=== PATIENT | male | born 1930 | race Caucasian/White ===

== ENCOUNTER 2016-05-25 10:37 | Emergency (ER) | payer OTHER, MEDICARE ==
[2016-05-25 10:49] VITALS: BP 137/85
[2016-05-25] MEDS ORDERED: ACETAMINOPHEN 500 MG TABLET PO ONE (11:12)
[2016-05-25 11:28] LABS: Hematocrit 38.3 % (42.0-52.0); Hemoglobin 12.7 gm/dL (13.5-18.0); Mean Cell Volume 90.1 fl (78-100); Mean Corpuscular Hemoglobin 29.9 pg (27-31); Mean Corpuscular Hgb Conc 33.2 g/dl (32-36); Mean Platelet Volume 9.4 fl (6.0-9.5); Neutrophil # 6.7 K/mm3 (1.3-6.0); Neutrophil % 85.9 % (42-75.0); Platelet Count 116 K/mm3 (150-450); Red Blood Count 4.25 M/mm3 (4.7-6.0); Red Cell Distribution Width 14.2 % (11.5-14.0); White Blood Count 7.8 K/mm3 (4.0-10.5)
[2016-05-25 11:38] LABS: Anion Gap 12.4 mmol/L (6.8-13.8); BUN/Creatinine Ratio 18.6 (9.0-21.6); Calcium * 9.6 mg/dL (7.9-10.9); Carbon Dioxide 28.2 mmol/L (24-32.6); Estimated Creat Clear 47.1; Potassium 3.6 mmol/L (3.4-4.6)
[2016-05-25 11:39] LABS: Prothrombin Time (Patient) 29.6 Seconds (9.4-11.4)
[2016-05-25 11:40] LABS: INR 2.85 INR (0.90-1.10)
--- NOTE | 2016-05-25 11:41 | ERNOTE ---
Upper Extremity HPI - Narrative Date of Service: 05/25/16 - General Extremities Pain Location: wrist: left Time Seen by Provider: 05/25/16 11:05 Source: patient Exam Limitations: no limitations - Immun/Allergies/Home Medications Immunizations: IMMUNIZATION HX Immunizations Up to Date Unknown History of Influenza Vaccine More Information Required Hx Pneumococcal Vaccination More Information Required Allergies/Adverse Reactions: Allergies Allergy/AdvReac Type Severity Reaction Status Date / Time No Known Allergies Allergy Verified 05/25/16 10:49 Home Medications: HOME MEDICATIONS Aspirin 81 mg PO DAILY 09/05/15 [Last Taken Unknown] Furosemide [Lasix] 40 mg PO DAILY 09/05/15 [Last Taken Unknown] Lisinopril [Zestril] 10 mg PO DAILY 09/05/15 [Last Taken Unknown] Simvastatin [Zocor] 20 mg PO HS 09/05/15 [Last Taken Unknown] Travoprost [Travatan Z] 1 drop EACHEYE DAILY 09/05/15 [Last Taken Unknown] Warfarin Sodium [Coumadin] 4 mg PO DAILY 09/05/15 [Last Taken Unknown] metFORMIN HCL [Glucophage] 500 mg PO BIDWM 09/05/15 [Last Taken Unknown] Albuterol Sulfate [Albuterol Sulfate 2.5 MG/0.5ML] 2.5 mg IH Q4HRT #120 vial.neb 09/11/15 [Last Taken Unknown] Fluticasone/Salmeterol [Advair 250-50 Diskus] 1 puff IH BID 30 Days 09/11/15 [ Last Taken Unknown] Tiotropium [place] [Spiriva] 1 cap IH DAILY 30 Days 09/11/15 [Last Taken Unknown ] - History of Present Illness Narrative: This is an 85 y/o man who resides at the [facility]. Yesterday morning, he was getting out of his chair too fast, and slipped, injuring his left wrist by striking it on his bed. It hurts, is a little swollen, and is now bruised. He takes coumadin. Occurred: yesterday Location of Incident: home Severity: mild, moderate Method of Injury: Reports: fell Reason for Fall: Reports: slipped Loss of Consciousness: Reports: no loss of consciousness Modifying Factors - (Improves): Reports: rest Modifying Factors - (Worsens): Reports: jarring, movement Associated Symptoms: Denies: tingling, weakness, numbness distally, loss of feeling, loss of power (lt arm) Other Injuries: Reports: none Prior Treament: Denies: recently seen, similar symptoms before Review of Systems - Review of Systems Constitutional: Present: no symptoms reported EYE: Present: no symptoms reported ENT: Present: no symptoms reported Respiratory: Present: no symptoms reported Cardiology: Present: no symptoms reported Gastrointestinal/Abdominal: Present: no symptoms reported Genitourinary: Present: no symptoms reported Musculoskeletal: Present: See HPI Skin: Present: no symptoms reported Neurological: Present: no symptoms reported Endocrine: Present: no symptoms reported Hematologic/Lymphatic: Present: no symptoms reported Psych: Present: no symptoms reported All Other Systems: All systems neg except as marked - Patient's Past Medical History Patient History - Medical: Diabetes Type 2, Other - prosthetic aortic valve Patient History - Cardiac/Respiratory: Coronary Heart Disease, CVA/Stroke Patient History - Cancer: No Hx of Cancer Patient History - Surgical Procedures: Coronary Bypass Surgery Patient History - Other: None - Family History Father Family History - Medical: , History Unknown Mother Family History - Medical: , History Unknown - Social History Living Situations: assisted living Abuse History: No History of abuse Psych History: No pertinent hx Alcohol Use: none Drug Use: none - Immunizations Immunizations Up to Date: - Unknown Hx Pneumococcal Vaccination: More Information Required to Determine History of Influenza Vaccine: More Information Required to Determine Physical Exam - Physical Exam General Appearance: Present: wd/wn, alert, no apparent distress, thin, other - kyphosis, wheelchair Eye Exam: Normal inspection: bilateral, PERRL: bilateral, EOMI: bilateral Ears, Nose, Throat: Present: normal ENT inspection Neck: Present: nontender Respiratory: Present: no respiratory distress, normal breath sounds Cardiovascular/Chest: Present: regular rate, rhythm, no murmur Gastrointestinal/Abdominal: Present: normal bowel sounds, nontender, nondistended, soft, no organomegaly Back Exam: Present: other - kyphosis Extremity Exam: Present: other - dorsum left wrist tender, slightly swollen. bruising from just behind proximal MP joints 1/3 the up the distal forearm Neurological Exam: Present: alert, oriented, normal mood/affect, no motor/ sensory deficits Skin Exam: Present: normal color, cool/dry ED Progress - Results and Orders Patient's Lab Results:: I have reviewed the patient's lab results. - Vital Signs Patient's Vital Signs:: I have reviewed the patient's vital signs. Vital Signs: Vital Signs 05/25/16 10:46 Temperature 37.0 C Pulse Rate 66 Respiratory 16 Rate Blood Pressure 137/85 O2 Sat by Pulse 99 Oximetry - X-Ray X-Ray #1 X-Ray: wrist Interpretation: Reviewed by me - minimally displaced, impacted, intra-articular distal radial fracture; mildly displaced, impacted distal ulnar fracture. - Progress/Reassessment Chief Complaint: Upper Extremity Injury/Problem Progress Note-Subjective: 05/25/16 12:08 I left voicemail on the on-call orthopod's, Dr. Stark's, cell phone. 05/25/16 12:[address] Stark, who recommended sugar tong splint, sling, and call Friday for an appt with him next week. Departure Clinical Impression: Forearm fractures, both bones, closed Qualifiers: Encounter type: initial encounter Laterality: left Qualified Code(s): S52.202A - Unspecified fracture of shaft of left ulna, initial encounter for closed fracture; S52.92XA - Unspecified fracture of left forearm, initial encounter for closed fracture - Departure Disposition: Home self-care Condition: Good Instructions: Wrist Fracture Treated With Immobilization, [id number], RICE for Routine Care of Injuries, [id number] Additional Instructions: Call Dr. Stark's office Friday, make an appt with him for sometime next week. Tylenol 650 mg four times daily as needed for pain.
== END 2016-05-25 12:42 | disposition home or self-care (01) ==
LOC: ER 10:37
PROC: 2W3FX1Z Immobilization of Left Hand using Splint (ICD-10-PCS; principal; 2016-05-25)
DX: S52.202A Unspecified fracture of shaft of left ulna, initial encounter for closed fracture (principal); S52.92XA Unspecified fracture of left forearm, initial encounter for closed fracture; W07.XXXA Fall from chair, initial encounter; Z91.81 History of falling; Y92.128 Other place in nursing home as the place of occurrence of the external cause; E11.9 Type 2 diabetes mellitus without complications; Z86.73 Personal history of transient ischemic attack (TIA), and cerebral infarction without residual deficits; I25.2 Old myocardial infarction

== ENCOUNTER 2016-07-03 11:18 | Emergency (ER) | payer OTHER, MEDICARE ==
--- NOTE | 2016-07-03 12:03 | ERNOTE ---
Lower Extremity HPI - Narrative Date of Service: 07/03/16 - General Lower Extremities Pain: hip: left - numbness, leg: left - numbness Time Seen by Provider: 07/03/16 11:39 Source: patient, other - [facility] - Immun/Allergies/Home Medications Immunizations: IMMUNIZATION HX Immunizations Up to Date Unknown History of Influenza Vaccine More Information Required Hx Pneumococcal Vaccination More Information Required Allergies/Adverse Reactions: Allergies Allergy/AdvReac Type Severity Reaction Status Date / Time No Known Allergies Allergy Verified 07/03/16 11:46 Home Medications: HOME MEDICATIONS Aspirin 81 mg PO DAILY 09/05/15 [Last Taken Unknown] Furosemide [Lasix] 40 mg PO DAILY 09/05/15 [Last Taken Unknown] Lisinopril [Zestril] 10 mg PO DAILY 09/05/15 [Last Taken Unknown] Simvastatin [Zocor] 20 mg PO HS 09/05/15 [Last Taken Unknown] Travoprost [Travatan Z] 1 drop EACHEYE DAILY 09/05/15 [Last Taken Unknown] Warfarin Sodium [Coumadin] 4 mg PO DAILY 09/05/15 [Last Taken Unknown] metFORMIN HCL [Glucophage] 500 mg PO BIDWM 09/05/15 [Last Taken Unknown] Albuterol Sulfate [Albuterol Sulfate 2.5 MG/0.5ML] 2.5 mg IH Q4HRT #120 vial.neb 09/11/15 [Last Taken Unknown] Acetaminophen 325 mg PO Q4H PRN 07/03/16 [Last Taken Unknown] - History of Present Illness Narrative: Patient was send from [facility] for evaluation after a fall. Patient was reported avoiding weight on the L hip area. Patient reported that he has L leg numbness. Patient with no Hx of head Tx and no LOC. Occurred: yesterday Location of Incident: other - [facility] Method of Injury: Reports: fell Reason for Fall: Reports: lost balance Loss of Consciousness: Reports: no loss of consciousness Modifying Factors - (Improves): Reports: other - nothing Modifying Factors - (Worsens): Reports: movement Associated Symptoms: Reports: weakness - generalized. Denies: vomiting/diarrhea Other Injuries: Reports: none Subsequent Symptoms: Reports: numbness - L leg area Prior Treament: Reports: recently seen Review of Systems - Review of Systems Constitutional: Absent: fever, chills, weakness, fatigue, malaise EYE: Present: no symptoms reported ENT: Present: no symptoms reported Respiratory: Present: no symptoms reported Cardiology: Present: no symptoms reported Gastrointestinal/Abdominal: Absent: vomiting, diarrhea, constipation, abdominal pain Genitourinary: Present: no symptoms reported Musculoskeletal: Present: joint pain - L Hip Neurological: Present: numbness - L leg area Endocrine: Present: no symptoms reported Hematologic/Lymphatic: Present: no symptoms reported Psych: Present: no symptoms reported All Other Systems: All systems neg except as marked - Patient's Past Medical History Patient History - Medical: Diabetes Type 2 Patient History - Cardiac/Respiratory: CHF, Hypertension, Hyperlipidemia Patient History - Cancer: No Hx of Cancer Patient History - Surgical Procedures: No surgical history Patient History - Other: None - Family History Father Family History - Medical: , History Unknown Mother Family History - Medical: , History Unknown - Social History Living Situations: assisted living Abuse History: No History of abuse Psych History: No pertinent hx Alcohol Use: none Drug Use: none - Immunizations Immunizations Up to Date: - Unknown Hx Pneumococcal Vaccination: More Information Required to Determine History of Influenza Vaccine: More Information Required to Determine Physical Exam - Physical Exam General Appearance: Present: wd/wn, alert, no apparent distress Eye Exam: Normal inspection: bilateral Ears, Nose, Throat: Present: normal ENT inspection Neck: Present: normal inspection, nontender Respiratory: Present: no respiratory distress, normal breath sounds, no accessory muscle use, chest nontender, lungs clear Cardiovascular/Chest: Present: no murmur, normal peripheral pulses, bradycardia Gastrointestinal/Abdominal: Present: normal bowel sounds, nontender, nondistended, no organomegaly, other - Patient has a colostomy bag on the LLQ area Back Exam: Present: normal inspection. Absent: CVA tenderness (R), CVA tenderness (L) Extremity Exam: Present: normal inspection, non-tender, normal range of motion, no edema Neurological Exam: Present: alert, oriented, no motor/sensory deficits Skin Exam: Present: normal color, warm/dry Lymphatic Exam: Present: no adenopathy ED Progress - Date and Time Seen: Date and Time: 07/03/16 13:39 Patient at the moment has been found with A. Flutter and Bradycardia. Patient with noticeable Trops, no ST elevations and no Chest Pain. I had called Hospitalist and informed of the need of consult. At the moment [facility] has no active in patient cardiology service and no facility to place PPM or perform cath. 07/03/16 13:47 I had presented case to [facility] due to limited bed situation [facility] will call back to see if patient can be accepted. 07/03/16 15:27 Patient has been accepted by [facility]. Patient was done CT of the Head as requested by accepting facility. Patient at this point has been cleared for transfer. - Results and Orders Patient's Lab Results:: I have reviewed the patient's lab results. Results and Orders: CBC: WNL CMP: WNL Trop: Noticed - Vital Signs Patient's Vital Signs:: I have reviewed the patient's vital signs. Vital Signs: Vital Signs 07/03/16 07/03/16 11:21 11:50 Temperature 36.7 C Pulse Rate 52 L 54 L Respiratory 12 16 Rate Blood Pressure 137/50 148/61 O2 Sat by Pulse 99 98 Oximetry - EKG EKG: atrial flutter, LBBB, LVH EKG read: Interp. by me EKG Comments: HR: 40. A. Flutter, LBBB - X-Ray X-Ray #1 X-Ray: hip - No Fx reported by radiologist X-Ray #2 X-Ray: l-spine X-ray Comments: No Fx reported X-Ray #3 X-Ray: chest X-ray Comments: Hypoventilatroy changes. No pneumonia reported - CT/Ultrasound CT/Ultrasound Narrative: CT Head: Negative by Radiologist - Progress/Reassessment Chief Complaint: Lower Extremity Pain/ Injury - Transfer of Care Expected Disposition: Transfer Plan - Plan Plan: Due to arrhythmia and elevated Troponin patient will be send to facility with active cardiac service. Patient is a full code. Departure Clinical Impression: Troponin I above reference range Arrhythmia Qualifiers: Arrhythmia type: atrial flutter Atrial flutter type: unspecified Qualified Code (s): I48.92 - Unspecified atrial flutter - Departure Disposition: [facility] Condition: Stable Referrals: Lai Duong MD [Primary Care Provider] -
[2016-07-03 13:09] LABS: Hematocrit 38.1 % (42.0-52.0); Hemoglobin 12.7 gm/dL (13.5-18.0); Mean Cell Volume 91.4 fl (78-100); Mean Corpuscular Hemoglobin 30.5 pg (27-31); Mean Corpuscular Hgb Conc 33.3 g/dl (32-36); Mean Platelet Volume 10.3 fl (6.0-9.5); Neutrophil # 4.6 K/mm3 (1.3-6.0); Neutrophil % 75.4 % (42-75.0); Platelet Count 124 K/mm3 (150-450); Red Blood Count 4.17 M/mm3 (4.7-6.0); Red Cell Distribution Width 14.6 % (11.5-14.0); White Blood Count 6.1 K/mm3 (4.0-10.5)
[2016-07-03 13:29] LABS: Troponin I 0.093 ng/ml (0.00-0.10)
[2016-07-03 13:30] LABS: Albumin * 3.4 gm/dl (3.4-5.0); Anion Gap 13.5 mmol/L (6.8-13.8); BUN/Creatinine Ratio 17.2 (9.0-21.6); Bilirubin, Total 0.9 mg/dL (0.0-1.1); Ca. Corrected For Albumin 9.8 mg/dL (8.4-10.2); Calcium * 9.6 mg/dL (7.9-10.9); Carbon Dioxide 27.7 mmol/L (24-32.6); Potassium 4.2 mmol/L (3.4-4.6); Total Protein 6.9 gm/dL (6.2-8.2)
[2016-07-03 13:33] LABS: Prothrombin Time (Patient) 41.5 Seconds (9.4-11.4)
[2016-07-03 13:43] LABS: INR 3.99 INR (0.90-1.10)
[2016-07-03 13:44] LABS: Partial Thrombolplastin Time 46.5 Seconds (24-32)
[2016-07-03 15:21] VITALS: BP 127/48
== END 2016-07-03 15:57 | disposition short-term general hospital (02) ==
LOC: ER 11:18
DX: I48.92 Unspecified atrial flutter (principal); R74.8 Abnormal levels of other serum enzymes; E11.9 Type 2 diabetes mellitus without complications; I50.9 Heart failure, unspecified; Z79.01 Long term (current) use of anticoagulants; I10 Essential (primary) hypertension; E78.5 Hyperlipidemia, unspecified

== ENCOUNTER 2017-04-30 17:22 | Inpatient (IN) | payer OTHER, MEDICARE ==
[2017-04-30] MEDS ORDERED: NORMAL SALINE 1,000 ML IV ONE ×3 (17:45→21:41)
[2017-04-30 18:16] LABS: Hematocrit 43.8 % (42.0-52.0); Hemoglobin 14.5 gm/dL (13.5-18.0); Mean Corpuscular Hemoglobin 30.5 pg (27-31); Mean Corpuscular Hgb Conc 33.1 g/dl (32-36); Mean Platelet Volume 10.8 fl (6.0-9.5); Neutrophil # 3.6 K/mm3 (1.3-6.0); Neutrophil % 75.9 % (42-75.0); Red Blood Count 4.76 M/mm3 (4.7-6.0); Red Cell Distribution Width 15.2 % (11.5-14.0); White Blood Count 4.7 K/mm3 (4.0-10.5)
[2017-04-30 18:25] LABS: Platelet Count 99 K/mm3 (150-450)
[2017-04-30 18:37] LABS: Anion Gap 17.7 mmol/L (6.8-13.8); BUN/Creatinine Ratio 20.5 (9.0-21.6); Bilirubin, Total 1.1 mg/dL (0.0-1.1); CRP 5.7 mg/dL (0.0-0.9); Ca. Corrected For Albumin 9.5 mg/dL (8.4-10.2); Calcium * 9.8 mg/dL (7.9-10.9); Potassium 3.7 mmol/L (3.4-4.6); Total Protein 8.2 gm/dL (6.2-8.2)
[2017-04-30 18:42] LABS: Troponin I 1.155 ng/ml (0.00-0.10)
[2017-04-30 19:15] LABS: Urine Bilirubin Negative (NEGATIVE); Urine Blood 250 /ul (NEGATIVE); Urine Ketone Negative (NEGATIVE); Urine Nitrite Negative (NEGATIVE); Urine Protein 15 mg/dL (NEGATIVE); Urine Specific Gravity 1.025 SP.GR. (1.005-1.030); Urine Urobilinogen Normal (NORMAL); Urine pH 5.5 pH (5.0-7.0)
[2017-04-30 19:26] LABS: Urine Amorphous Sediment Few - 1+ (NONE-FEW); Urine Appearance Clear; Urine Bacteria TRACE; Urine Color Yellow; Urine WBC None Seen /hpf (0-5)
--- NOTE | 2017-04-30 19:33 | ERNOTE ---
Neuro HPI ER Record Date of Service: 04/30/17 Presenting Symptoms: weakness, confusion, other - alterred mental staus Time Seen by Provider: 04/30/17 17:34 Source: patient, family Exam Limitations: physical impairment, dementia Immunizations: IMMUNIZATION HX Immunizations Up to Date Yes History of Influenza Vaccine More Information Required Hx Pneumococcal Vaccination More Information Required Allergies/Adverse Reactions: Allergies Allergy/AdvReac Type Severity Reaction Status Date / Time No Known Allergies Allergy Verified 04/30/17 17:33 Home Medications: HOME MEDICATIONS Aspirin 81 mg PO DAILY 09/05/15 [Last Taken Unknown] Furosemide [Lasix] 40 mg PO DAILY 09/05/15 [Last Taken Unknown] Lisinopril [Zestril] 10 mg PO DAILY 09/05/15 [Last Taken Unknown] Travoprost [Travatan Z] 1 drop EACHEYE DAILY 09/05/15 [Last Taken Unknown] Albuterol Sulfate [Albuterol Sulfate 2.5 MG/0.5ML] 2.5 mg IH Q4HRT #120 vial.neb 09/11/15 [Last Taken Unknown] Acetaminophen 325 mg PO Q4H PRN 07/03/16 [Last Taken Unknown] Carvedilol [Coreg] 3.125 mg PO 04/30/17 [Last Taken Unknown] Cetirizine HCl [Zyrtec] 10 mg PO DAILY 04/30/17 [Last Taken Unknown] Jantoven 04/30/17 [Last Taken Unknown] Levothyroxine Sodium [Synthroid] 25 mcg PO DAILY 04/30/17 [Last Taken Unknown] - History of Present Illness Narrative: patient a long term patient has had fever and alterred mental status today Onset: cannot confirm onset Context: other - no known injury - Character of Deficits New weakness: Present: general (diffuse) Altered sensation: Present: other - unable to tell Additional Deficits: Present: decrease ability to stand, decrease ability to walk, weakness Baseline Cognition: Present: alert but confused Baseline Gait: Present: walks only w/ assistance Associated Symptoms: Reports: fever/chills, altered mental status Prior Treament: Reports: similar symptoms before Review of Systems - Review of Systems Constitutional: Present: See HPI EYE: Present: no symptoms reported ENT: Present: no symptoms reported Respiratory: Present: no symptoms reported Cardiology: Present: no symptoms reported Gastrointestinal/Abdominal: Present: no symptoms reported Genitourinary: Present: See HPI, dysuria Neurological: Present: See HPI, dizziness/light-headedness, weakness Endocrine: Present: no symptoms reported Hematologic/Lymphatic: Present: no symptoms reported Psych: Present: no symptoms reported All Other Systems: All systems neg except as marked - Narrative Narrative: unremarkable - Patient's Past Medical History Patient History - Medical: Diabetes Type 2 Patient History - Cardiac/Respiratory: CHF, CVA/Stroke, Hypertension, Hyperlipidemia Patient History - Cancer: No Hx of Cancer Patient History - Surgical Procedures: No surgical history Patient History - Other: None - Family History Father Family History - Medical: , History Unknown Mother Family History - Medical: , History Unknown - Social History Living Situations: home Abuse History: No History of abuse Psych History: No pertinent hx - Immunizations Immunizations Up to Date: Yes Hx Pneumococcal Vaccination: More Information Required to Determine History of Influenza Vaccine: More Information Required to Determine Physical Exam - Physical Exam General Appearance: Present: lethargic, sleeping/easy to arouse Head Exam: Present: normal inspection, no evidence of injury Eye Exam: Normal inspection: bilateral, PERRL: bilateral, EOMI: bilateral Ears, Nose, Throat: Present: normal ENT inspection Neck: Present: normal inspection, nontender Respiratory: Present: no respiratory distress, normal breath sounds, no accessory muscle use, chest nontender, lungs clear Cardiovascular/Chest: Present: other - paced rhytm Peripheral Pulses: N=norm/S=strong/W=weak/B=bound/A=absent: Carotid (R): Normal , Carotid (L): Normal, Radial (R): Normal, Radial (L): Normal, Femoral (R): Normal, Femoral (L): Normal, Dorsalis-pedis (R): Normal, Dorsalis-pedis (L): Normal Gastrointestinal/Abdominal: Present: normal bowel sounds, nontender, nondistended, soft, no organomegaly Extremity Exam: Present: normal inspection, non-tender, normal range of motion, no edema Neurological Exam: Present: disoriented to person, disoriented to time, disoriented to place Skin Exam: Present: normal color, warm/dry Lymphatic Exam: Present: no adenopathy ED Progress - Date and Time Seen: Date and Time: 04/30/17 19:40 condition unchanged - Results and Orders Patient's Lab Results:: I have reviewed the patient's lab results. - Vital Signs Patient's Vital Signs:: I have reviewed the patient's vital signs. Vital Signs: Vital Signs 04/30/17 04/30/17 04/30/17 17:28 17:56 18:33 Temperature 38.0 C H Pulse Rate 70 72 71 Respiratory 21 H 29 H 96 H Rate Blood Pressure 155/75 155/78 140/63 O2 Sat by Pulse 96 96 30 L Oximetry - EKG EKG: other - paced rhytm EKG read: Interp. by me - X-Ray X-Ray #1 X-Ray: chest - no acute process - Progress/Reassessment Chief Complaint: Altered Mental Status Progress:: Unchanged - Transfer of Care Expected Disposition: Admit Plan - Plan Plan: to be admitted Departure Clinical Impression: Sepsis, Influenza A - Departure Disposition: [facility] Condition: Serious
[2017-04-30] MEDS ORDERED: LEVOFLOXACIN IN DEXTROSE 5 % 750 MG/150 ML BAG IV SCH ×2 (20:00→21:45)
[2017-04-30] MEDS ORDERED: ACETAMINOPHEN 325 MG TABLET PO PRN (21:01)
--- NOTE | 2017-04-30 21:04 | HP ---
Chief Complaint - Chief Complaint Date of Service: 04/30/17 Time of Service: 21:04 Chief Complaint: fever, confusion. History of Present Illness: Rene is an 86 year old male patient of Dr. Duong who is a resident at the [facility] who presented to the ER today with fever and confusion that started today. Patient has a PMH of afib/flutter (on coumadin), CVA, chronic CHF s/p pacemaker/ICD, history of rectal cancer s/p colostomy, CAD s/p CABG, DM T2, Osteopenia, sepsis in 2015, and history of prosthetic aortic valve replacement. Last echo done 10/2013 showed ef 40-45% with bilateral atrial enlargement, mild MR, mild TR, mild AR, diastolic dysfunction and elevated RVSP at 37. ER evaluation showed + influenza A. chest xray with no acute abnormalities. temp 38.0, hr 70, rr 21, bp 155/75, sats 96% on ra. wbc normal at 4.7 with 75.9 neutrophils. lactic acid at 2.8, procal at 0.16. UA positive for 15 protein and 250 blood. troponin significantly elevated at 1.155. I personally spoke with patient's POA / next of kin who indicated that they understand the patient was likely have a WI but choose not to proceed with treatment for the WI given the patient's age, health condition and co-morbidities. Patient to be admitted for influenza, possible sepsis and NSTEMI. - Patient's Past Medical History Patient History - Medical: Diabetes Type 2 Patient History - Cardiac/Respiratory: Atrial Fibrillation, Cardiomyopathy, Coronary Heart Disease, CHF, CVA/Stroke, Hypertension, Hyperlipidemia Patient History - Cancer: Rectal Patient History - Surgical Procedures: Colon Resection, Coronary Bypass Surgery , Pacemaker, Other - aortic valve replacement Patient History - Other: None - Family History Father Family History - Medical: , History Unknown Mother Family History - Medical: , History Unknown - Social History Living Situations: shelter Abuse History: No History of abuse Psych History: No pertinent hx Does anyone smoke in the home?: No Smoking Status: Never smoker Alcohol Use: none Drug Use: none - Immunizations Immunizations Up to Date: Yes Hx Pneumococcal Vaccination: More Information Required to Determine History of Influenza Vaccine: More Information Required to Determine Review Of Systems (GEN) - Review of Systems Generalized/Overall Review: Present: Weakness, Chills, Fever, Malaise EENTM: Present: No Symptoms Reported Respiratory: Present: Cough Cardiac: Present: No Symptoms Reported Abdominal: Present: No Symptoms Reported Genitourinary: Present: No Symptoms Reported Musculoskeletal: Present: No Symptoms Reported Neurological: Present: No Symptoms Reported Skin: Present: No Symptoms Reported Endocrine: Present: No Symptoms Reported Misc: All systems neg except as marked - ROS difficult to obtain due to pt's current medical status. Immunizations: IMMUNIZATION HX Immunizations Up to Date Yes History of Influenza Vaccine More Information Required Hx Pneumococcal Vaccination More Information Required Allergies/Adverse Reactions: Allergies Allergy/AdvReac Type Severity Reaction Status Date / Time No Known Allergies Allergy Verified 04/30/17 17:33 Home Medications: HOME MEDICATIONS Aspirin 81 mg PO DAILY 09/05/15 [Last Taken Unknown] Furosemide [Lasix] 40 mg PO DAILY 09/05/15 [Last Taken Unknown] Lisinopril [Zestril] 10 mg PO DAILY 09/05/15 [Last Taken Unknown] Travoprost [Travatan Z] 1 drop EACHEYE DAILY 09/05/15 [Last Taken Unknown] Albuterol Sulfate [Albuterol Sulfate 2.5 MG/0.5ML] 2.5 mg IH Q4HRT #120 vial.neb 09/11/15 [Last Taken Unknown] Acetaminophen 325 mg PO Q4H PRN 07/03/16 [Last Taken Unknown] Carvedilol [Coreg] 3.125 mg PO 04/30/17 [Last Taken Unknown] Cetirizine HCl [Zyrtec] 10 mg PO DAILY 04/30/17 [Last Taken Unknown] Jantoven 04/30/17 [Last Taken Unknown] Levothyroxine Sodium [Synthroid] 25 mcg PO DAILY 04/30/17 [Last Taken Unknown] Exam - Exam Vital Signs: Vital Signs - Last Taken Temp 38.0 C H 04/30/17 17:28 Pulse 71 04/30/17 18:33 Resp 96 H 04/30/17 18:33 BP 140/63 04/30/17 18:33 Pulse Ox 30 L 04/30/17 18:33 Constitutional: Present: Mild distress, Lethargic, Elderly, Thin and frail Eye Exam: bilateral eye: normal inspection Neck: Present: lymphadenopathy (R), lymphadenopathy (L) Breasts: Present: Exam deferred Respiratory: Present: respiratory distress - mild, rhonchi - diffuse, scattered , wheezing - diffuse, scattered Cardiovascular/Chest: Present: systolic murmur - 2/6, other - heart valve "click ' heard Peripheral Pulses: carotid (R): 2+, carotid (L): 2+, dorsalis-pedis (R): 1+, dorsalis-pedis (L): 1+, radial (R): 1+, radial (L): 1+ Abdomen: Present: soft, nontender, other - colostomy present /Rectal: Present: Other - pressure ulcer present of coccyx Extremity: Present: non-tender, normal inspection Skin Exam: Present: no cyanosis, cool/dry, pallor Diagnostic Studies: Laboratory Results WBC 4.7 K/mm3 (4.0-10.5) 04/30/17 18:13 RBC 4.76 M/mm3 (4.7-6.0) 04/30/17 18:13 Hgb 14.5 gm/dL (13.5-18.0) 04/30/17 18:13 Hct 43.8 % (42.0-52.0) 04/30/17 18:13 MCV 92.0 fl (78-100) 04/30/17 18:13 MCH 30.5 pg (27-31) 04/30/17 18:13 MCHC 33.1 g/dl (32-36) 04/30/17 18:13 RDW 15.2 % (11.5-14.0) H 04/30/17 18:13 Plt Count 99 K/mm3 (150-450) L 04/30/17 18:13 MPV 10.8 fl (6.0-9.5) H 04/30/17 18:13 Immature Gran % (Auto) 0.20 % (0.001-0.429) 04/30/17 18:13 Immature Gran # (Auto) 0.01 K/mm3 (0.000-0.0310) 04/30/17 18:13 Neutrophils % 75.9 % (42-75.0) H 04/30/17 18:13 Lymphocytes % 16.1 % (20-51) L 04/30/17 18:13 Monocytes % 7.4 % (0.0-9) 04/30/17 18:13 Eosinophils % 0.0 % (0.0-3.0) 04/30/17 18:13 Basophils % 0.4 % (0.0-1.0) 04/30/17 18:13 Nucleated RBC % 0.0 k/mm3 (0-1) 04/30/17 18:13 Neutrophils # 3.6 K/mm3 (1.3-6.0) 04/30/17 18:13 Lymphocytes # 0.8 k/mm3 (1.5-3.5) L 04/30/17 18:13 Monocytes # 0.4 k/mm3 (0.0-1.0) 04/30/17 18:13 Eosinophils # 0.0 k/mm3 (0.0-0.7) 04/30/17 18:13 Absolute Basophils 0.0 k/mm3 (0.0-0.1) 04/30/17 18:13 Sodium 139 mmol/L (132-142) 04/30/17 18:13 Plasma Sodium 140 mmol/L (130-142) 04/30/17 18:13 Potassium 3.7 mmol/L (3.4-4.6) 04/30/17 18:13 Chloride 102 mmol/L (97-106) 04/30/17 18:13 Carbon Dioxide 23.0 mmol/L (24-32.6) L 04/30/17 18:13 Anion Gap 17.7 mmol/L (6.8-13.8) H 04/30/17 18:13 BUN 25 mg/dL (6-23) H 04/30/17 18:13 Creatinine 1.22 mg/dL (0.4-1.4) 04/30/17 18:13 Est GFR (Non-Af Amer) 60 mL/min (60-130) 04/30/17 18:13 BUN/Creatinine Ratio 20.5 (9.0-21.6) 04/30/17 18:13 Random Glucose 180 mg/dL (70-110) H 04/30/17 18:13 Lactic Acid, Venous 2.8 mmol/L (0.4-1.9) H* 04/30/17 18:13 Calcium 9.8 mg/dL (7.9-10.9) 04/30/17 18:13 Calcium Adj for Albumin 9.5 mg/dL (8.4-10.2) 04/30/17 18:13 Total Bilirubin 1.1 mg/dL (0.0-1.1) 04/30/17 18:13 AST 35 U/L (0-48) 04/30/17 18:13 ALT 21 U/L (19-67) 04/30/17 18:13 Alkaline Phosphatase 76 U/L (50-170) 04/30/17 18:13 Troponin I 1.155 ng/ml (0.00-0.10) H* 04/30/17 18:13 C-Reactive Prot, Quant 5.7 mg/dL (0.0-0.9) H 04/30/17 18:13 Total Protein 8.2 gm/dL (6.2-8.2) 04/30/17 18:13 Albumin 4.0 gm/dl (3.4-5.0) 04/30/17 18:13 Procalcitonin 0.16 ng/mL (0.05-0.50) 04/30/17 18:13 Urine Color Yellow 04/30/17 18:55 Urine Appearance Clear 04/30/17 18:55 Urine pH 5.5 pH (5.0-7.0) 04/30/17 18:[address] [place] 1.025 SP.GR. (1.005-1.030) 04/30/17 18:55 Urine Protein 15 mg/dL (NEGATIVE) H 04/30/17 18:55 Urine Glucose (UA) Negative mg/dL (NEGATIVE) 04/30/17 18:55 Urine Ketones Negative mg/dL (NEGATIVE) 04/30/17 18:55 Urine Blood 250 /ul (NEGATIVE) H 04/30/17 18:55 Urine Nitrate Negative (NEGATIVE) 04/30/17 18:55 Urine Bilirubin Negative mg/dl (NEGATIVE) 04/30/17 18:55 Prot Sulfosalicylic Acd Negative mg/dL (0) 04/30/17 18:55 Urine Urobilinogen Normal EU/dl (NORMAL) 04/30/17 18:55 Ur Leukocyte Esterase Negative /ul (NEGATIVE) 04/30/17 18:55 Urine RBC 5-10 /hpf (0-5) H 04/30/17 18:55 Urine WBC None seen /hpf (0-5) 04/30/17 18:55 Ur Epithelial Cells None seen /hpf (0-5) 18 18:55 Amorphous Sediment Few - 1+ (NONE-FEW) 04/30/17 18:55 Urine Bacteria Trace (NONE) 04/30/17 18:55 Urine Culture Comments Culture to follow 04/30/17 18:55 Influenza Type A Ag Positive (NEGATIVE) H 04/30/17 17:55 Influenza Type B Ag Negative (NEGATIVE) 04/30/17 17:55 Assessment/Plan - Narrative Narrative: Rene is an 86 year old male who was admitted with fever, confusion, weakness , possible sepsis and influenza A. Sepsis - it is possible that the source of his sepsis is underlying pneumonia, especially given how terrible his lungs sound versus skin / soft tissue source from the pressure ulcer present on his coccyx. - blood cultures have been drawn x2 and are currently pending. - patient was tachypnic in the ER and has had a change in his mental status. - levaquin and rocephin were started in the ER. will continue for now and these worked during his last sepsis episode in 2016. - will continue to hydrate with IV fluids given elevated lactic acid but will need to watch respiratory status closely with CHF history. - if patient becomes too overloaded with fluid, will need to add iv lasix to treatment plan as kidney function is adequate. - recheck lactic acid as needed until it starts to trend downwards. Influenza A - droplet precautions - tamiflu ordered - lungs with coarse scattered rhonchi with occasional scattered wheezing - duonebs added. - recheck labs in am. weakness - pt looks dehydrated / thin and frail. - encourage po intake - consult PT/OT NSTEMI - family has elected to not pursue treatment for this. - patient is a DNR. - has had various runs of VT - likely due to irritated heart - continue to monitor on telemetry - recheck troponin in am. CHF - chronic, combined. - daily weights / I&Os. DM - accuchecks ordered - sliding scale insulin ordered. afib / prosthetic aortic valve - check INR in am - consult pharmacy to manage coumadin while inpatient. GI proph: protonix VTE: SCDs - already on coumadin. Code status: DNR. - Assessment/Plan (1) NSTEMI (non-ST elevated myocardial infarction) Problem: Acute (2) Influenza A Problem: Acute (3) Sepsis Problem: Acute Qualifiers: Sepsis type: sepsis due to unspecified organism Qualified Code(s): A41.9 - Sepsis, unspecified organism (4) Generalized weakness Problem: Acute (5) Confusion Problem: Acute (6) Diabetes mellitus Problem: Chronic Qualifiers: Diabetes mellitus type: type 2 Diabetes mellitus complication status: with hyperglycemia (7) CHF (congestive heart failure) Problem: Chronic Qualifiers: Congestive heart failure type: combined Congestive heart failure chronicity : chronic Qualified Code(s): I50.42 - Chronic combined systolic (congestive) and diastolic (congestive) heart failure (8) Aortic valve prosthesis present Problem: Chronic (9) Pressure ulcer Problem: Acute Qualifiers: Pressure ulcer location: sacral region Pressure ulcer stage: unspecified pressure ulcer stage Qualified Code(s): L89.159 - Pressure ulcer of sacral region, unspecified stage
[2017-04-30] MEDS: ALBUTEROL SULFATE/IPRATROPIUM 3 ML NEBU IH SCH (21:47)
[2017-04-30] MEDS: NORMAL SALINE 1,000 ML IV PRN (22:14)
[2017-04-30] MEDS: INSULIN REGULAR, HUMAN 100 UNITS/ML VIAL SC SCH (22:52)
[2017-05-01] MEDS ORDERED: ACETAMINOPHEN 325 MG TABLET PO PRN (00:10)
[2017-05-01] MEDS ORDERED: OSELTAMIVIR PHOSPHATE 6 MG/ML BTL PO ONE (00:31)
[2017-05-01] MEDS: OSELTAMIVIR PHOSPHATE 30 MG CAPSULE PO SCH ×2 (01:27→08:09)
[2017-05-01] MEDS ORDERED: FUROSEMIDE 10 MG/ML VIAL IV ONE ×2 (03:26→07:00)
--- NOTE | 2017-05-01 03:43 | PN ---
Subjective - Date and Time Seen Date: 05/01/17 Time: 03:39 Objective Objective Narrative: pt sleeping quietly. arouses easily. denies pain. wet cough noted. sats 100 % on RA. multiple intermittent non-sustained runs of VT. - Review of Systems Generalized/Overall Review: Reports: No Symptoms Reported - unable to get full ROS due to patient's condition., Weakness - Vitals Vitals: Last Vital Signs Temp 36.3 C L 05/01/17 00:48 Pulse 70 05/01/17 00:48 Resp 16 05/01/17 00:48 BP 123/68 05/01/17 00:48 Pulse Ox 100 05/01/17 00:48 - Abnormal Lab Findings Abnormal Lab Findings: Abnormal Lab Results 04/30/17 05/01/17 Range/Units 21:29 00:05 Lactic Acid, Venous 4.6 H* 2.4 H* (0.4-1.9) mmol/L - Exam Constitutional: Present: No distress, Lethargic, Other - color has improved overnight., Elderly, Thin and frail ENT Exam: Present: hearing grossly normal Neck: Present: lymphadenopathy (R), lymphadenopathy (L) Breasts: Present: Exam deferred Respiratory: Present: lungs clear - upper lungs, no respiratory distress, rhonchi - lower lungs Cardiovascular/Chest: Present: no chest tenderness, systolic murmur - 2/6, other - "click" heard from mechanical valve Abdomen: Present: soft, nontender, nondistended /Rectal: Present: Exam deferred Extremity: Present: non-tender, normal inspection Skin Exam: Present: normal color, warm/dry, no cyanosis Assessment/Plan Plan Narrative: Rene is an 86 year old male who was admitted with fever, confusion, weakness , possible sepsis and influenza A. Sepsis - it is possible that the source of his sepsis is underlying pneumonia, especially given how terrible his lungs sound versus skin / soft tissue source from the pressure ulcer present on his coccyx. - lung sounds have improved with current treatment - blood cultures have been drawn x2 and are currently pending. - patient was tachypnic in the ER and has had a change in his mental status. - rr has improved overnight - levaquin and rocephin were started in the ER. will continue for now and these worked during his last sepsis episode in 2016. - will continue to hydrate with IV fluids given elevated lactic acid but will need to watch respiratory status closely with CHF history. - pt sounds a little "wet" this am - will order lasix 20 mg iv x1. - recheck lactic acid as needed until it starts to trend downwards. - once lactic acid normalized, can turn down iv fluids significantly. Influenza A - droplet precautions - tamiflu ordered - lungs with coarse scattered rhonchi with occasional scattered wheezing - duonebs added. - lung sounds have improved overnight - recheck labs this am pending. weakness - pt looks dehydrated / thin and frail. - encourage po intake - consult PT/OT NSTEMI - family has elected to not pursue treatment for this. - patient is a DNR. - has had various runs of VT - likely due to irritated heart - continue to monitor on telemetry - recheck troponin in am - pending. CHF - chronic, combined. - daily weights / I&Os. DM - accuchecks ordered - sliding scale insulin ordered. afib / prosthetic aortic valve - check INR in am - consult pharmacy to manage coumadin while inpatient. GI proph: protonix VTE: SCDs - already on coumadin. Code status: DNR. - Problems/Diagnosis (1) NSTEMI (non-ST elevated myocardial infarction) Problem: Acute (2) Influenza A Problem: Acute (3) Sepsis Problem: Acute Qualifiers: Sepsis type: sepsis due to unspecified organism Qualified Code(s): A41.9 - Sepsis, unspecified organism (4) Generalized weakness Problem: Acute (5) Confusion Problem: Acute (6) Diabetes mellitus Problem: Chronic Qualifiers: Diabetes mellitus type: type 2 Diabetes mellitus complication status: with hyperglycemia (7) CHF (congestive heart failure) Problem: Chronic Qualifiers: Congestive heart failure type: combined Congestive heart failure chronicity : chronic Qualified Code(s): I50.42 - Chronic combined systolic (congestive) and diastolic (congestive) heart failure (8) Aortic valve prosthesis present Problem: Chronic (9) Pressure ulcer Problem: Acute Qualifiers: Pressure ulcer location: sacral region Pressure ulcer stage: unspecified pressure ulcer stage Qualified Code(s): L89.159 - Pressure ulcer of sacral region, unspecified stage
[2017-05-01] MEDS: NORMAL SALINE 1,000 ML IV PRN (04:26)
[2017-05-01 05:56] LABS: Hematocrit 35.1 % (42.0-52.0); Hemoglobin 12.1 gm/dL (13.5-18.0); Mean Cell Volume 90.5 fl (78-100); Mean Corpuscular Hemoglobin 31.2 pg (27-31); Mean Corpuscular Hgb Conc 34.5 g/dl (32-36); Mean Platelet Volume 10.2 fl (6.0-9.5); Neutrophil # 4.2 K/mm3 (1.3-6.0); Neutrophil % 82.8 % (42-75.0); Platelet Count 86 K/mm3 (150-450); Red Blood Count 3.88 M/mm3 (4.7-6.0); Red Cell Distribution Width 15.2 % (11.5-14.0); White Blood Count 5.1 K/mm3 (4.0-10.5)
[2017-05-01 06:05] LABS: Prothrombin Time (Patient) 22.8 Seconds (9.0-11.0)
[2017-05-01] MEDS: ALBUTEROL SULFATE/IPRATROPIUM 3 ML NEBU IH SCH ×2 (06:11→11:02)
[2017-05-01 06:31] LABS: INR 2.26 INR (0.90-1.10)
[2017-05-01 06:45] LABS: BUN/Creatinine Ratio 22.2 (9.0-21.6); Estimated Creat Clear 54.6
[2017-05-01 06:46] LABS: Anion Gap 12.1 mmol/L (6.8-13.8); Calcium * 8.2 mg/dL (7.9-10.9); Potassium 3.1 mmol/L (3.4-4.6)
[2017-05-01 06:48] LABS: Troponin I 6.09 ng/ml (0.00-0.10)
[2017-05-01] MEDS ORDERED: LEVOTHYROXINE SODIUM 25 MCG TABLET PO SCH (07:00)
[2017-05-01] MEDS ORDERED: ALBUTEROL SULFATE/IPRATROPIUM 3 ML NEBU IH SCH (07:00)
[2017-05-01] MEDS: TRAVOPROST 25 DROP BTL EACHEYE SCH (08:08)
[2017-05-01] MEDS: INSULIN REGULAR, HUMAN 100 UNITS/ML VIAL SC SCH ×2 (08:09→11:48)
[2017-05-01] MEDS ORDERED: CARVEDILOL 3.125 MG TABLET PO SCH (09:00)
[2017-05-01 09:56] VITALS: BP 109/53
[2017-05-01] MEDS ORDERED: POLYVINYL ALCOHOL 150 DROP BTL EACHEYE PRN (11:43)
[2017-05-01] MEDS ORDERED: LORazepam 2 MG/ML DISP.SYRIN IV PRN (11:43)
[2017-05-01] MEDS ORDERED: ONDANSETRON HCL/PF 2 MG/ML VIAL IV PRN (11:43)
[2017-05-01] MEDS ORDERED: BISACODYL 10 MG SUPP.RECT RC PRN (11:43)
[2017-05-01] MEDS ORDERED: ZOLPIDEM TARTRATE 5 MG TABLET PO PRN (11:43)
[2017-05-01] MEDS ORDERED: guaiFENesin/DEXTROMETHORPHAN 118 ML BTL PO PRN (11:43)
[2017-05-01] MEDS ORDERED: ATROPINE SULFATE 150 DROP BTL SL PRN (11:43)
[2017-05-01] MEDS ORDERED: ALBUTEROL SULFATE/IPRATROPIUM 3 ML NEBU IH PRN (11:46)
[2017-05-01] MEDS: MORPHINE SULFATE 10 MG/0.5 ML SYRINGE PO PRN ×2 (16:12→19:50)
[2017-05-01] MEDS ORDERED: WARFARIN SODIUM 5 MG TABLET PO SCH (17:00)
[2017-05-01] MEDS: SENNOSIDES/DOCUSATE SODIUM 1 TAB TABLET PO SCH (22:37)
--- NOTE | 2017-05-02 10:01 | DS ---
(1) Influenza A Problem: Acute (2) NSTEMI (non-ST elevated myocardial infarction) Problem: Acute (3) Sepsis Problem: Acute Qualifiers: Sepsis type: sepsis due to unspecified organism Qualified Code(s): A41.9 - Sepsis, unspecified organism Description of Stay: ADMISSION DATE: 04/30/2017 DISCHARGE DATE: 05/05/2017 ADMISSION HPI by DOROTEO Schulz: Rene is an 86 year old male patient of Dr. Duong who is a resident at the [facility] who presented to the ER today with fever and confusion that started today. Patient has a PMH of afib/flutter (on coumadin), CVA, chronic CHF s/p pacemaker/ICD, history of rectal cancer s/p colostomy, CAD s/p CABG, DM T2, Osteopenia, sepsis in 2015, and history of prosthetic aortic valve replacement. Last echo done 10/2013 showed ef 40-45% with bilateral atrial enlargement, mild MR, mild TR, mild AR, diastolic dysfunction and elevated RVSP at 37. ER evaluation showed + influenza A. chest xray with no acute abnormalities. temp 38.0, hr 70, rr 21, bp 155/75, sats 96% on ra. wbc normal at 4.7 with 75.9 neutrophils. lactic acid at 2.8, procal at 0.16. UA positive for 15 protein and 250 blood. troponin significantly elevated at 1.155. I personally spoke with patient's POA / next of kin who indicated that they understand the patient was likely have a MT but choose not to proceed with treatment for the MT given the patient's age, health condition and co-morbidities. Patient to be admitted for influenza, possible sepsis and NSTEMI. HOSPITAL COURSE: The patient was admitted to the hospital with Influenza A, sepsis and a NSTEMI. I had a lengthy discussion with the patient's nephew who is his POA about Rene's clinical condition and what our goals should be and what our care plan should look like. After our discussion, the POA decided to make his uncle comfort cares only and [facility] was consulted. This was a very appropriate decision as the patient is nearing the end of his life. He has been hospitalized multiple times in the recent past due to his deteriorating condition and the reason prompting this current admission is that he suffered and MT as well as has Influenza A with sepsis. Due to his Influenza A, [facility] had concerns about the patient having Influenza A because they have not had any Influenza A at their facility this year and they would like to keep it that way, which is very understandable. The average time frame that a patient is infectious/contagious after symptoms begin (this does not include the time frame prior to showing any symptoms that you are highly contagious) is 4.8 days. Since the patient presented with symptoms on admission , we kept the patient in the hospital for at least 5 days from admission. The patient was going to discharge to [facility] but ultimately, [facility], where the patient lived prior to admission accepted the patient back with [facility]. The patient was discharged to [facility] with [facility] in poor condition and comfort measures only in place. FOLLOW-UP APPOINTMENTS: None NEW OR CHANGED MEDICATIONS: -Comfort care medications only DISCONTINUED MEDICATIONS: -Comfort care medications only RADIOLOGY REPORTS: Single View CXR on 04/30/2017: No acute cardiopulmonary process. Head CT without contrast on 04/30/2017: No acute intracranial process. Procedures Performed: none Discharge Disposition: [facility] Discharge Location: [facility] Disposition: Hospice Home Condition: Poor Discharge Activity: Activity as tolerated Discharge Diet: General/regular food Discharge Level of Care:: Hospice - Home Referrals: Lai Duong MD [Primary Care Provider] - Additional Patient Instructions (free text): -Follow-up with PCP, Dr. Duong, only as needed Prescriptions (Any new or edited meds): Acetaminophen [Tylenol] 650 mg PO Q4H PRN #30 tablet PRN Reason: Mild Pain (Pain Scale 1-3) Albuterol Sulfate/Ipratropium [Duoneb 2.5-0.5MG/3ML Soln] 3 ml IH Q4H PRN #30 nebu PRN Reason: Shortness Of Breath Atropine Sulfate [Atropine 1% Ophthalmic Solution] 2 drop SL Q2H PRN #1 btl PRN Reason: Secretions Furosemide [Lasix] 40 mg PO Q6H PRN #60 tablet PRN Reason: Edema Lorazepam [Lorazepam Intensol] 2 mg PO Q2H PRN #30 ml PRN Reason: Anxiety Morphine Sulfate [Morphine Sulfate Conc. Oral Solution] 5 mg PO Q1H PRN #30 ml PRN Reason: Severe Pain (Pain Scale 7-10) Polyvinyl Alcohol [Artificial Tears] 2 drop EACHEYE PRN PRN #1 btl PRN Reason: Dry Eye(S) Sennosides/Docusate Sodium [Senokot-S] 2 tab PO TID PRN #60 tablet PRN Reason: Constipation Complete Home Medications List: Complete Home Medication List: Acetaminophen [Tylenol] 650 mg PO Q4H PRN #30 tablet 05/05/17 Albuterol Sulfate/Ipratropium [Duoneb 2.5-0.5MG/3ML Soln] 3 ml IH Q4H PRN #30 nebu 05/05/17 Atropine Sulfate [Atropine 1% Ophthalmic Solution] 2 drop SL Q2H PRN #1 btl Furosemide [Lasix] 40 mg PO Q6H PRN #60 tablet 05/05/17 Lorazepam [Lorazepam Intensol] 2 mg PO Q2H PRN #30 ml 05/05/17 Morphine Sulfate [Morphine Sulfate Conc. Oral Solution] 5 mg PO Q1H PRN #30 ml 05/05/17 Polyvinyl Alcohol [Artificial Tears] 2 drop EACHEYE PRN PRN #1 btl 05/05/17 Sennosides/Docusate Sodium [Senokot-S] 2 tab PO TID PRN #60 tablet 05/05/17
[2017-05-02] MEDS: TRAVOPROST 25 DROP BTL EACHEYE SCH (10:03)
--- NOTE | 2017-05-02 16:23 | PN ---
Subjective - Date and Time Seen Date: 05/02/17 Time: 16:23 Subjective Narrative: Patient seen and examined at bedside. No acute issues overnight. Patient resting comfortably at the time of my exam and he denies any new issues or concerns this AM. Although he sounds audible shortness of breath, he denies any SOB when asked. Objective - Review of Systems Generalized/Overall Review: Reports: Weakness, Fatigue. Denies: Fever EENTM: Reports: No Symptoms Reported Respiratory: Reports: Cough. Denies: Shortness of Breath Cardiac: Denies: Chest Pain Misc: All systems neg except as marked - Vitals Vitals: Last Vital Signs Temp 36.5 C 05/01/17 09:52 Pulse 68 05/01/17 11:12 Resp 28 H 05/01/17 11:12 BP 109/53 05/01/17 09:52 Pulse Ox 100 05/01/17 11:02 - Exam Constitutional: Present: Alert, No distress, Elderly, Thin and frail Respiratory: Present: rhonchi, other - Coarse breath sounds diffusely Cardiovascular/Chest: Present: regular rate, rhythm Abdomen: Present: soft, nontender, other - Colostomy patent with air and brown soft stool in ostomy bag Skin Exam: Present: pallor Neurologic: Present: alert, other - flat affect Eye contact: Present: cooperative Assessment/Plan Plan Narrative: I had a lengthy discussion with the patient's nephew who is his POA about Rene's clinical condition and what our goals should be and what our care plan should look like. After our discussion, the POA decided to make his uncle comfort cares only and consult [facility] who will meet with the patient and his family later today. This is a very appropriate decision as the patient is nearing the end of his life. He has been hospitalized multiple times in the recent past due to his deteriorating condition and the reason prompting this current admission is that he sufferred and NH as well as has Influenza A with sepsis. We will await further plans for discharge after [facility] meets with the patient and his family. - Problems/Diagnosis (1) Hospice care patient Problem: Acute (2) Need for comfort care Problem: Acute (3) Influenza A Problem: Acute (4) NSTEMI (non-ST elevated myocardial infarction) Problem: Acute (5) Sepsis Problem: Acute Qualifiers: Sepsis type: sepsis due to unspecified organism Qualified Code(s): A41.9 - Sepsis, unspecified organism
[2017-05-02] MEDS: SENNOSIDES/DOCUSATE SODIUM 1 TAB TABLET PO SCH (21:49)
[2017-05-03] MEDS: TRAVOPROST 25 DROP BTL EACHEYE SCH (08:27)
--- NOTE | 2017-05-03 20:02 | PN ---
Subjective - Date and Time Seen Date: 05/03/17 Time: 11:00 Subjective Narrative: Patient seen and examined at bedside. No acute issues overnight. Patient resting comfortably at the time of my exam. Objective - Review of Systems Generalized/Overall Review: Reports: Weakness, Fatigue Respiratory: Reports: Cough Misc: All systems neg except as marked - Vitals Vitals: Last Vital Signs Temp 36.5 C 05/01/17 09:52 Pulse 68 05/01/17 11:12 Resp 28 H 05/01/17 11:12 BP 109/53 05/01/17 09:52 Pulse Ox 100 05/01/17 11:02 - Exam Constitutional: Present: Alert, No distress, Elderly, Thin and frail Respiratory: Present: rhonchi, other - Coarse breath sounds diffusely Cardiovascular/Chest: Present: regular rate, rhythm Abdomen: Present: soft, nontender, other - Colostomy patent with gas and brown soft stool in ostomy bag Skin Exam: Present: pallor Neurologic: Present: alert, other - flat affect Eye contact: Present: cooperative Assessment/Plan Plan Narrative: Patient awaiting discharge to a facility with [facility]. I greatly appreciate our rn field case manager assistance in discharge planning. Our counseling case manager has spoken with [facility] and the facility had concerns about the patient having Influenza A because they have not had any Influenza A at their facility this year and they would like to keep it that way, which is very understandable. The average time frame that a patient is infectious/contagious after symptoms begin (this does not include the time frame prior to showing any symptoms that you are highly contagious) is 4.8 days. Since the patient presented with symptoms on admission, we will plan to keep the patient in the hospital for at least 5 days from admission. Tentative plan is for discharge on 05/05/2017. - Problems/Diagnosis (1) Hospice care patient Problem: Acute (2) Need for comfort care Problem: Acute (3) Influenza A Problem: Acute (4) NSTEMI (non-ST elevated myocardial infarction) Problem: Acute (5) Sepsis Problem: Acute Qualifiers: Sepsis type: sepsis due to unspecified organism Qualified Code(s): A41.9 - Sepsis, unspecified organism
[2017-05-03] MEDS: SENNOSIDES/DOCUSATE SODIUM 1 TAB TABLET PO SCH (22:34)
[2017-05-04] MEDS: TRAVOPROST 25 DROP BTL EACHEYE SCH (09:06)
[2017-05-04] MEDS: SENNOSIDES/DOCUSATE SODIUM 1 TAB TABLET PO SCH (20:32)
[2017-05-05] MEDS: TRAVOPROST 25 DROP BTL EACHEYE SCH (09:47)
--- NOTE | 2017-05-05 11:22 | PN ---
Subjective - Date and Time Seen Date: 05/04/17 Time: 09:50 Subjective Narrative: Patient seen and examined at bedside. No acute issues overnight. Patient resting comfortably at the time of my exam. Objective Objective Narrative: The patient denies any pain or SOB at the time of my exam. - Review of Systems Respiratory: Denies: Shortness of Breath Misc: All systems neg except as marked - Vitals Vitals: Last Vital Signs Temp 36.5 C 05/01/17 09:52 Pulse 68 05/01/17 11:12 Resp 28 H 05/01/17 11:12 BP 109/53 05/01/17 09:52 Pulse Ox 100 05/01/17 11:02 - Exam Constitutional: Present: Alert, No distress, Elderly, Thin and frail Respiratory: Present: rhonchi, other - Coarse breath sounds diffusely Abdomen: Present: soft, nontender, other - Colostomy patent with gas and brown soft stool in ostomy bag Skin Exam: Present: pallor Neurologic: Present: alert, other - flat affect Eye contact: Present: cooperative Assessment/Plan Plan Narrative: Patient awaiting discharge to a facility with [facility]. Tentative plan is for discharge on 05/05/2017. - Problems/Diagnosis (1) Hospice care patient Problem: Acute (2) Need for comfort care Problem: Acute (3) Influenza A Problem: Acute (4) NSTEMI (non-ST elevated myocardial infarction) Problem: Acute (5) Sepsis Problem: Acute Qualifiers: Sepsis type: sepsis due to unspecified organism Qualified Code(s): A41.9 - Sepsis, unspecified organism
== END 2017-05-05 14:07 | disposition hospice, home (50) | DRG 871 ==
LOC: ER 17:22 → MS 19:40 → UNDOADMIN 19:40
PROVIDERS: ADMIT Internal Medicine; ATTEND Internal Medicine
DX: A41.9 Sepsis, unspecified organism (principal); I21.4 Non-ST elevation (NSTEMI) myocardial infarction; I50.42 Chronic combined systolic (congestive) and diastolic (congestive) heart failure; J11.1 Influenza due to unidentified influenza virus with other respiratory manifestations; I48.2 Chronic atrial fibrillation; E78.5 Hyperlipidemia, unspecified; I10 Essential (primary) hypertension; R53.1 Weakness; E11.65 Type 2 diabetes mellitus with hyperglycemia; L89.159 Pressure ulcer of sacral region, unspecified stage; Z95.1 Presence of aortocoronary bypass graft; Z95.2 Presence of prosthetic heart valve; Z79.01 Long term (current) use of anticoagulants; Z79.82 Long term (current) use of aspirin; Z95.0 Presence of cardiac pacemaker